=== PATIENT | female | born 1945 | race Caucasian/White ===

== ENCOUNTER → 2016-08-30 | Outpatient (CLI) | payer MEDICARE, OTHER ==
--- NOTE | 2016-08-31 01:58 | HKNOTE ---
DATE OF SERVICE: 08/30/2016 INTERVAL HISTORY: The patient presents today for a followup visit for her bilateral knees. We last saw her in 01/2016, at which point, she underwent bilateral Monovisc injections. She tolerated the procedure well. She had good symptomatic relief for approximately 6 months. She understands that she may need to discuss surgical intervention at some point; however, taking care of both her [id number] and who are wheelchair dependent and is not ready to proceed with surgery at this time. She denies any adverse events from her last injections. She presents today for evaluation. PHYSICAL EXAMINATION: Today, she is alert and oriented x4 and in no acute distress. Exam of bilateral knees demonstrate 3+ patellofemoral crepitus. The varus/valgus forces are stable bilaterally. She does have a slight flexion contracture of 5 to 110 degrees bilaterally. There is no erythema, warmth, or effusion noted. Compartments are soft. She is neurovascularly intact distally. ASSESSMENT: Bilateral knee osteoarthritis. PLAN: The patient underwent bilateral Monovisc injections successfully with no adverse events today. I advised her to modify her activities, take over-the- counter anti-inflammatories, and apply ice today. She can resume all of her normal physical activity as tolerated. She understands that at some point if her symptoms do not improve or if she has diminishing returns from her injections, she may need to think about a knee replacement; however, would like to continue conservative treatment at this time. If she has any adverse events , she will call the office. Otherwise, we will see her back on an as needed basis. PROCEDURE NOTE: The procedure was fully explained to the patient and informed consent was obtained prior to the start of the procedure. The area was prepped and draped in sterile fashion using Betadine. Local anesthesia was achieved using ethyl chloride to anesthetize the superolateral aspect of bilateral knees , which were both injected with 4 mL of Monovisc each in the superolateral fashion. The patient tolerated the procedure well. A sterile dressing was applied. All questions and concerns were addressed at the time of the procedure. Dictated By: JONATHAN GARNETT for JOSE ALEJANDRO HUYNH/STEVO Conf#: [id number] DID#: [id number] PRINCESS
== END | disposition home or self-care (01) ==
LOC: HKI 14:12
PROVIDERS: ATTEND Orthopaedic Surgery
DX: M25.561 Pain in right knee (principal); M25.562 Pain in left knee; M17.0 Bilateral primary osteoarthritis of knee